=== PATIENT | female | born 1930 | race Caucasian/White ===

== ENCOUNTER 2017-03-11 14:04 | Emergency (ER) | payer OTHER ==
--- NOTE | 2017-03-11 16:01 | ERNOTE ---
Lower Extremity HPI - Narrative Date of Service: 03/11/17 - General Lower Extremities Pain: knee: right Time Seen by Provider: 03/11/17 14:26 Source: patient Exam Limitations: no limitations - Immun/Allergies/Home Medications Immunizations: IMMUNIZATION HX Immunizations Up to Date Yes History of Influenza Vaccine No Hx Pneumococcal Vaccination No Allergies/Adverse Reactions: Allergies Allergy/AdvReac Type Severity Reaction Status Date / Time No Known Allergies Allergy Unverified 03/11/17 14:13 Home Medications: HOME MEDICATIONS NK [No Home Medication] 03/11/17 [Last Taken Unknown] - History of Present Illness Narrative: Pt. comes in with c/o R knee pain after tripping over a curb [place] the bank on Saturday. Pt. 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 Review of Systems - Review of Systems Constitutional: Present: no symptoms reported. Absent: recent illness, fever, chills, weakness, fatigue, malaise EYE: Present: no symptoms reported ENT: Present: no symptoms reported Respiratory: Present: no symptoms reported. Absent: shortness of breath, cough , wheezing Cardiology: Present: no symptoms reported. Absent: chest pain, palpitations, edema Gastrointestinal/Abdominal: Present: no symptoms reported Genitourinary: Present: no symptoms reported Musculoskeletal: Present: joint pain - R knee. Absent: back pain Skin: Present: no symptoms reported. Absent: rash, change in hair/nails Neurological: Present: no symptoms reported. Absent: headache, dizziness/light- headedness, numbness, tingling Endocrine: Present: no symptoms reported Hematologic/Lymphatic: Present: no symptoms reported All Other Systems: All systems neg except as marked - Patient's Past Medical History Patient History - Medical: No pertinent hx Patient History - Cardiac/Respiratory: No pertinent hx Patient History - Cancer: No Hx of Cancer Patient History - Surgical Procedures: Other - Family History Father Family History - Medical: Mother Family History - Medical: - Social History Living Situations: alone Abuse History: No History of abuse Psych History: No pertinent hx Smoking Status: Never smoker Have you smoked in the past 12 months: No Do you dip or chew tobacco: No Alcohol Use: none Drug Use: none - Immunizations Immunizations Up to Date: Yes Hx Pneumococcal Vaccination: No History of Influenza Vaccine: No ED Progress - Date and Time Seen: Date and Time: 03/11/17 16:[address] Infante three times was finally able to speak with eliane nd he would like pt. to see him in clinic tomorrow after having an immobilizer placed - Vital Signs Patient's Vital Signs:: I have reviewed the patient's vital signs. Vital Signs: Vital Signs 03/11/17 14:05 Temperature 36.4 C L Pulse Rate 64 Respiratory 16 Rate Blood Pressure 106/54 O2 Sat by Pulse 98 Oximetry - X-Ray X-Ray #1 X-Ray: knee Interpretation: Reviewed by me X-ray Comments: intra-articular nondisplaced patella fracture X-Ray #2 X-Ray: hip Interpretation: Reviewed by me X-ray Comments: previously replaced hip without any complications - Progress/Reassessment Chief Complaint: Lower Extremity Pain/ Injury Progress:: Improved Progress Note-Subjective: 03/11/17 16:11 pain free at rest. Departure Clinical Impression: Patella fracture Qualifiers: Encounter type: initial encounter Fracture type: closed Fracture morphology: unspecified fracture morphology Fracture alignment: nondisplaced Laterality: right Qualified Code(s): S82.001A - Unspecified fracture of right patella, initial encounter for closed fracture - Departure Disposition: Home self-care Condition: Good Instructions: Patellar Fracture, Adult Additional Instructions: Please follow up with primary provider in 2-3 days. Please take 1000mg of Tylenol 4 times a day. Referrals: Baldev Loja MD [Primary Care Provider] -
[2017-03-11 20:06] VITALS: BP 111/55
== END 2017-03-11 16:15 | disposition home or self-care (01) ==
LOC: ER 14:04
PROC: 2W3LX1Z Immobilization of Right Lower Extremity using Splint (ICD-10-PCS; principal; 2017-03-11)
DX: S82.001A Unspecified fracture of right patella, initial encounter for closed fracture (principal); W10.1XXA Fall (on)(from) sidewalk curb, initial encounter; Y93.01 Activity, walking, marching and hiking; Y92.414 Local residential or business street as the place of occurrence of the external cause